=== PATIENT | male | born 1950 | race Caucasian/White ===

== ENCOUNTER 2021-07-12 15:52 | Emergency (ER) | payer BC, OTHER ==
[~2021-07-12] VITALS: Ht 165.1 cm; Wt 86.2 kg
[2021-07-12 16:18] VITALS: BP 118/62
[2021-07-12] MEDS ORDERED: ROB PO (17:27)
[2021-07-12] MEDS ORDERED: ACET-10509 PO (17:27)
--- NOTE | 2021-07-12 18:30 | NUR ---
GUNJAN AND FLU SWABS COLLECTED AND WALKED TO LAB
--- NOTE | 2021-07-12 18:32 | NUR ---
NO NURSING INTERVENTIONS PROVIDED
[2021-07-12 18:33] VITALS: BP 105/53
--- NOTE | 2021-07-12 18:33 | NUR ---
Patient discharged with v/s stable. Written and verbal after care instructions ABOUT COVID 19 given and explained. Patient alert, oriented and verbalized understanding of instructions. Ambulatory with steady gait. All questions addressed prior to discharge. ID band removed. Patient advised to follow up with PMD. Rx of ROBITUSSIN AND TYLENOL EXTRA STRENGTH given. Patient educated on indication of medication including possible reaction and side effects. Opportunity to ask questions provided and answered.
== END 2021-07-12 18:33 | disposition home or self-care (01) ==
LOC: MED 15:52
DX: U07.1 COVID-19 (principal); R19.7 Diarrhea, unspecified; E11.9 Type 2 diabetes mellitus without complications; Z79.899 Other long term (current) drug therapy
CPT/HCPCS: 99283